=== PATIENT | male | born 1955 ===

== ENCOUNTER 2017-08-12 10:45 | Emergency (ER) | payer BC ==
[2017-08-12 10:51] VITALS: BP 161/97
--- NOTE | 2017-08-12 12:16 | ED ---
Respiratory - HPI Summary HPI Summary: 62 y/o male presents to the urgent care c/o dry cough, nasal congestion w/ green nasal discharge,, +PND for the past 2 weeks. Sinus pain is 4/10 associated w/ PINZON and B/L ear pressure. Pt has been taking OTC medication to alleviate symptoms. Pt denies fever, SOB, dizziness, chest pain, N/V/D - History of Current Complaint Chief Complaint: UCRespiratory Stated Complaint: COUGH,HEADACHE Time Seen by Provider: 08/12/17 11:42 Hx Obtained From: Patient Onset/Duration: Gradual Onset, Lasting Weeks - 2 weeks, Still Present, Worse Since - 2 days Timing: Constant Initial Severity: Mild Current Severity: Moderate Pain Intensity: 4 Character: Cough (Nonproductive) Sputum Amount: Moderate - nasal discharge and PND Sputum Color: Yellow, Green Aggravating Factor(s): URI Alleviating Factor(s): OTC Medications Associated Signs and Symptoms: Negative, Sinus Infection - Risk Factors Status Asthmaticus Risk Factors: Negative Pulmonary Embolism Risk Factors: Negative Cardiac Risk Factors: Negative Pseudomonas Risk Factors: Negative Tuberculosis Risk Factors: Negative - Allergy/Home Medications Allergies/Adverse Reactions: Allergies Allergy/AdvReac Type Severity Reaction Status Date / Time No Known Allergies Allergy Verified 08/12/17 10:47 Home Medications: Home Medications Febuxostat [Uloric] 40 mg PO DAILY 08/12/17 [History Confirmed 08/12/17] PMH/Surg Hx/FS Hx/Imm Hx Previously Healthy: Yes Endocrine/Hematology History: Reports: Other Endocrine/Hematological Disorders - GOUT Cardiovascular History: Reports: Hx Hypertension - MILD, NO MEDS diet controlled Denies: Other Cardiovascular Problems/Disorders Respiratory History: Denies: Other Respiratory Problems/Disorders GI History: Denies: Other GI Disorders Musculoskeletal History: Denies: Other Musculoskeletal History Sensory History: Denies: Hx Contacts or Glasses, Hx Hearing Aid Opthamlomology History: Denies: Hx Contacts or Glasses Neurological History: Denies: Other Neuro Impairments/Disorders - Surgical History Surgery Procedure, Year, and Place: LEFT KNEE, 1999, [facility] Hx Anesthesia Reactions: No Infectious Disease History: No Infectious Disease History: Denies: Traveled Outside the [place] in Last 30 Days - Family History Known Family History: Positive: Hypertension, Diabetes - Social History Occupation: Employed Full-time Lives: With Family Alcohol Use: None Alcohol Amount: 3 PER DAY Substance Use Type: Reports: None Smoking Status (MU): Never Smoked Tobacco Review of Systems Constitutional: Negative Eyes: Negative Positive: Ear Ache - B/L ear pressure, Nasal Discharge, Other - sinus pain Cardiovascular: Negative Positive: Cough - dry Gastrointestinal: Negative Genitourinary: Negative Musculoskeletal: Negative Skin: Negative Positive: Headache Psychological: Normal All Other Systems Reviewed And Are Negative: Yes Physical Exam - Summary Physical Exam Summary: Vitals: reviewed General: Well developed, well-nourished male patient with NAD. Head and face: Normocephalic and atraumatic, Positive tenderness over the frontal and maxillary sinuses.. Eyes: PERRLA, EOMI x 2. Normal conjunctiva. No eye discharge. ENT: Ears and TM with normal limits. Nose: with yellowish discharge and erythematous mucosa. Pharynx with erythema, no exudate. Neck: Supple, no JVD, no carotid bruits and no lymphadenopathy. Lungs: clear, no rales, no rhonchi, no wheezes. CVS: RRR, S1 and S2 present no murmurs or gallops appreciated. Abdomen: soft nontender with positive bowel sounds. Extremities: no edema noted. Neuro: WNL. Skin: warm and dry Triage Information Reviewed: Yes Vital Signs On Initial Exam: Initial Vitals Temp Pulse Resp BP Pulse Ox 97.7 F 107 18 161/97 99 08/12/17 10:48 08/12/17 10:48 08/12/17 10:48 08/12/17 10:48 08/12/17 10:48 Diagnostics - Vital Signs Vital Signs Temp Pulse Resp BP Pulse Ox 08/12/17 10:48 97.7 F 107 18 161/97 99 - Laboratory Lab Statement: Any lab studies that have been ordered have been reviewed, and results considered in the medical decision making process. Disposition - Course Course Of Treatment: 62 y/o male presents to the urgent care c/o dry cough, nasal congestion w/ green nasal discharge,, +PND for the past 2 weeks. Sinus pain is 4/10 associated w/ PINZON and B/L ear pressure. Pt has been taking OTC medication to alleviate symptoms. Pt denies fever, SOB, dizziness, chest pain, N /V/D. Hx obtained. Pt w/ acute bacterial sinusitis on examination.Pt with 2 weeks of symptoms getting worse. Pt Rx Augmentin PO and flonase nasal spray. Tessalon PO for cough. Discharge instructions explained to Pt. Advised to Return to the clinic or PCP if symptoms do not improve.Pt's BP is elevated today advised to decrease salt in diet, monitor BP and f/u with PCP for further management. Pt understood and agreed with plan of care. - Differential Dx - Cardiopulmonary Differential Diagnoses - Cardiopulmonary: Bronchitis, Influenza, Laryngitis, Lower Resp Infection, Sinusitis - Diagnoses Provider Diagnoses: Sinusitis, acute, Cough, Uncontrolled hypertension Discharge - Discharge Plan Condition: Stable Disposition: HOME Prescriptions: Amoxicillin/Clavulanate TAB* [Augmentin TAB 875*] 875 mg PO BID #20 tab Benzonatate CAP* [Tessalon 100 MG CAP*] 100 mg PO TID PRN #21 cap PRN Reason: Cough Fluticasone NASAL SPRAY 50MCG* [Flonase NASAL SPRAY 50MCG*] 2 spray BOTH NARES DAILY #1 btl Patient Education Materials: Sinusitis (ED) Forms: *Work Release Referrals: Cuco Bautista MD [Primary Care Provider] - 1 Week Additional Instructions: 1- Please increase fluid intake and rest. take full course of antibiotic to avoid resistance 2-Use Flonase as directed to help drain fluid. Also buy saline drops to clear sinuses 3-Take Tessalon PO to alleviates cough 4-Return to the clinic or PCP if symptoms do not improve for further management and treatment 5-Your BP is elevated today. please decrease salt in your diet, monitor BP and if it continues to be elevated please f/u with your PCP for further management
== END 2017-08-12 12:33 | disposition home or self-care (01) ==
LOC: UCEAST 10:45
DX: J01.90 Acute sinusitis, unspecified (principal); R05 Cough; I10 Essential (primary) hypertension
CPT/HCPCS: 99211; G0463

== ENCOUNTER 2017-09-09 13:22 | Emergency (ER) | payer BC ==
[2017-09-09 15:59] VITALS: BP 152/86
[2017-09-09] MEDS ORDERED: predniSONE TAB* 20 MG PO ONE (15:59)
[2017-09-09] MEDS ORDERED: Ipratropium 0.5MG/2.5ML NEB* 0.5 MG/2.5 ML NEB.SOLN INH ONE (16:21)
--- NOTE | 2017-09-09 16:23 | UC ---
Respiratory Complaint HPI - HPI Summary HPI Summary: Works at [employer], states he completed course of augmentin about 2-3 weeks ago and 3 days ago he started with constant dry cough which is triggering his gag reflex. Denies vomiting. Denies fever. States sometimes he has foamy clear d/c from nose and as he coughs. - History of Current Complaint Chief Complaint: UCGeneralIllness Stated Complaint: COUGH,NAUSEA Time Seen by Provider: 09/09/17 15:15 Hx Obtained From: Patient Onset/Duration: Sudden Onset, Lasting Days Timing: Constant Severity Currently: Moderate Pain Intensity: 2 Aggravating Factors: Exertion, Deep Breaths, Recumbent Position Associated Signs And Symptoms: Positive: Negative Related History: Seasonal Allergies - Risk Factors Pulmonary Embolism Risk Factors: Negative Cardiac Risk Factors: Hypertension Pseudomonas Risk Factors: Negative Tuberculosis Risk Factors: Negative - Allergies/Home Medications Allergies/Adverse Reactions: Allergies Allergy/AdvReac Type Severity Reaction Status Date / Time No Known Allergies Allergy Verified 09/09/17 13:50 Home Medications: Home Medications Blood Pressure Med 09/09/17 [History] Gout Med 09/09/17 [History] PMH/Surg Hx/FS Hx/Imm Hx Previously Healthy: Yes Cardiovascular History: Hypertension - Surgical History Surgical History: Yes Surgery Procedure, Year, and Place: LEFT KNEE, 1999, [facility] - Family History Known Family History: Positive: Hypertension, Diabetes Family History: No FHx of malignant hyperthermia. No FHX of anesthesia raction - Social History Alcohol Use: None Alcohol Amount: 3 PER DAY Substance Use Type: None Smoking Status (MU): Never Smoked Tobacco Review of Systems Constitutional: Chills ENT: Nasal Discharge Respiratory: Cough All Other Systems Reviewed And Are Negative: Yes Physical Exam Triage Information Reviewed: Yes Appearance: Well-Appearing, Obese Vital Signs: Initial Vital Signs Temp 97.9 F 09/09/17 13:45 Pulse 102 09/09/17 13:45 Resp 18 09/09/17 13:45 BP 135/94 09/09/17 13:45 Pulse Ox 96 09/09/17 13:45 Vital Signs Reviewed: Yes Eyes: Positive: Conjunctiva Clear ENT: Positive: Hearing grossly normal, Pharynx normal, TMs normal, Uvula midline Neck: Positive: Supple, Nontender, No Lymphadenopathy Respiratory: Positive: Chest non-tender, Lungs clear, Normal breath sounds, No respiratory distress Cardiovascular: Positive: RRR, No Murmur, Pulses Normal, Brisk Capillary Refill Abdomen Description: Positive: Nontender Bowel Sounds: Positive: Present UC Diagnostic Evaluation - Laboratory O2 Sat by Pulse Oximetry: 96 Respiratory Course/Dx - Course Course Of Treatment: influenza testing done, negative. Start inhalers as prescribed. Clinical improvemnt with nebulizations and first dose of prednisone in UC. Continue oral hydration - Differential Dx/Diagnosis Provider Diagnoses: reactive airway disease, Acute Bronchitis Discharge - Sign-Out/Discharge Documenting (check all that apply): Discharge - Discharge Plan Condition: Stable Disposition: HOME Prescriptions: Fluticasone-Salmeterol 250-50* [Advair Diskus 250-50*] 1 puff INH BID 10 Days # 1 diskus Ipratropium HFA INHALER(NF) [Atrovent Hfa Inhaler(NF)] 1 puff INH Q6H #1 mdi predniSONE TAB* [Deltasone TAB*] 60 mg PO DAILY 3 Days #9 tab Spacer/Holding Chamber (NF) [Easivent CHAMBER (NF)] 1 unit INH QID #1 device Patient Education Materials: How to Use a Metered-Dose Inhaler (ED), Acute Bronchitis (ED), How to Use a Dry-Powder Inhaler (ED) Referrals: Cuco Bautista MD [Primary Care Provider] - - Billing Disposition and Condition Condition: STABLE Disposition: HOME
--- NOTE | 2017-09-09 16:28 | UC ---
Respiratory Complaint HPI - HPI Summary HPI Summary: Patient states that for the past 3 days he has been coughing constantly, denies malaise or fever. Several days ago completed course of augmentin. Cough is constant to the point it triggers gag reflex. States it is mostly dry with occasional spitting of foamy clear d/c from mouth and nose. Works in [employer]. Denies vomiting or diarrhea - History of Current Complaint Chief Complaint: UCGeneralIllness Stated Complaint: COUGH,NAUSEA Time Seen by Provider: 09/09/17 15:15 Pain Intensity: 2 - Risk Factors Pulmonary Embolism Risk Factors: Negative Cardiac Risk Factors: Hypertension Tuberculosis Risk Factors: Negative - Allergies/Home Medications Allergies/Adverse Reactions: Allergies Allergy/AdvReac Type Severity Reaction Status Date / Time No Known Allergies Allergy Verified 09/09/17 13:50 Home Medications: Home Medications Blood Pressure Med 09/09/17 [History] Gout Med 09/09/17 [History] PMH/Surg Hx/FS Hx/Imm Hx Previously Healthy: Yes Cardiovascular History: Hypertension - Surgical History Surgical History: Yes Surgery Procedure, Year, and Place: LEFT KNEE, 1999, [facility] - Family History Known Family History: Positive: Hypertension, Diabetes Family History: No FHx of malignant hyperthermia. No FHX of anesthesia raction - Social History Alcohol Use: None Alcohol Amount: 3 PER DAY Substance Use Type: None Smoking Status (MU): Never Smoked Tobacco Review of Systems Constitutional: Negative ENT: Nasal Discharge Respiratory: Cough All Other Systems Reviewed And Are Negative: Yes Physical Exam Triage Information Reviewed: Yes Appearance: Well-Appearing, Obese Vital Signs: Initial Vital Signs Temp 97.9 F 09/09/17 13:45 Pulse 102 09/09/17 13:45 Resp 18 09/09/17 13:45 BP 135/94 09/09/17 13:45 Pulse Ox 96 09/09/17 13:45 Vital Signs Reviewed: Yes Eyes: Positive: Conjunctiva Clear ENT: Positive: Pharynx normal, TMs normal, Uvula midline Neck: Positive: Supple, Nontender, No Lymphadenopathy Respiratory: Positive: Chest non-tender, Lungs clear, Normal breath sounds, No respiratory distress Cardiovascular: Positive: RRR, No Murmur, Pulses Normal, Brisk Capillary Refill UC Diagnostic Evaluation - Laboratory O2 Sat by Pulse Oximetry: 92 Respiratory Course/Dx - Course Course Of Treatment: Influenza testing was negative. First dose of Prednisone given, nebulization of atrovent solution given. Continue Oral hydration, and medications as prescribed. - Differential Dx/Diagnosis Provider Diagnoses: Acute Bronchitis Discharge - Sign-Out/Discharge Documenting (check all that apply): Discharge - Discharge Plan Condition: Stable Disposition: HOME Prescriptions: Fluticasone-Salmeterol 250-50* [Advair Diskus 250-50*] 1 puff INH BID 10 Days # 1 diskus Ipratropium HFA INHALER(NF) [Atrovent Hfa Inhaler(NF)] 1 puff INH Q6H #1 mdi Spacer/Holding Chamber (NF) [Easivent CHAMBER (NF)] 1 unit INH QID #1 device Referrals: Cuco aButista MD [Primary Care Provider] - - Billing Disposition and Condition Condition: STABLE Disposition: HOME
== END 2017-09-09 16:55 | disposition home or self-care (01) ==
LOC: UCEAST 13:22
DX: J20.9 Acute bronchitis, unspecified (principal); I10 Essential (primary) hypertension
CPT/HCPCS: 87502; 99212; G0463; J7512